=== PATIENT | male | born 1985 | race Caucasian/White ===

== ENCOUNTER 2017-09-22 12:24 | Emergency (ER) | payer OTHER ==
[~2017-09-22] VITALS: Wt 81.6 kg
[~2017-09-22 12:24] MED LIST: CLARITIN10 MG PO; MOTRIN800 MG PO; SEPTRA DS 800 M1 TAB
[2017-09-22] MEDS ORDERED: AMOXICILLIN500 M2 PO (12:35)
[2017-09-22] MEDS ORDERED: NORCO 10-325 T1 EACH PO ×2 (12:35→13:58)
== END 2017-09-22 12:34 | disposition home or self-care (01) ==
LOC: ED 12:24
DX: K02.9 Dental caries, unspecified (principal); K08.89 Other specified disorders of teeth and supporting structures; F10.10 Alcohol abuse, uncomplicated

== ENCOUNTER 2018-07-24 13:05 | Emergency (ER) | payer OTHER ==
[~2018-07-24] VITALS: Ht 182.8 cm; Wt 77.1 kg
[~2018-07-24 13:05] MED LIST changes: +AMOXICILLIN500 M2 PO; +NORCO 10-325 T1 EACH PO
[2018-07-24] MEDS ORDERED: Tobrex Ophth S2.5 ML OPH (13:46)
[2018-07-24] MEDS ORDERED: ACULAR 0.5%3 ML OPH (13:46)
== END 2018-07-24 13:49 | disposition home or self-care (01) ==
LOC: ED 13:05
DX: T15.91XA Foreign body on external eye, part unspecified, right eye, initial encounter (principal); F17.200 Nicotine dependence, unspecified, uncomplicated; X58.XXXA Exposure to other specified factors, initial encounter; Y93.89 Activity, other specified; Y92.89 Other specified places as the place of occurrence of the external cause; Y99.8 Other external cause status

== ENCOUNTER 2019-08-11 18:29 | Emergency (ER) | payer OTHER ==
[~2019-08-11] VITALS: Ht 182.8 cm; Wt 77.1 kg
[~2019-08-11 18:29] MED LIST changes: +ACULAR 0.5%3 ML OPH; +OFLOXACIN OTIC5 ML OT; +Tobrex Ophth S2.5 ML OPH
[2019-08-11] MEDS ORDERED: CYCLOBENZAPRINE10 MG PO (20:35)
[2019-08-11] MEDS ORDERED: IBU800 M1 PO (20:35)
[2019-08-11] MEDS ORDERED: TRAMADOL HCL50 MG PO (20:36)
== END 2019-08-11 21:55 | disposition home or self-care (01) ==
LOC: ED 18:29
DX: S22.32XA Fracture of one rib, left side, initial encounter for closed fracture (principal); S00.12XA Contusion of left eyelid and periocular area, initial encounter; S00.01XA Abrasion of scalp, initial encounter; S20.412A Abrasion of left back wall of thorax, initial encounter; S40.212A Abrasion of left shoulder, initial encounter; F17.200 Nicotine dependence, unspecified, uncomplicated; Z79.2 Long term (current) use of antibiotics; Z79.899 Other long term (current) drug therapy; Y04.2XXA Assault by strike against or bumped into by another person, initial encounter; Y93.89 Activity, other specified; Y92.69 Other specified industrial and construction area as the place of occurrence of the external cause; Y99.8 Other external cause status

== ENCOUNTER 2019-08-20 13:56 | Emergency (ER) | payer OTHER ==
[~2019-08-20 13:56] MED LIST changes: +CYCLOBENZAPRINE10 MG PO; +IBU800 M1 PO; +TRAMADOL HCL50 MG PO
[2019-08-20 14:56] LABS: BILIRUBIN NEGATIVE (NEGATIVE); CLARITY SL CLOUDY (CLEAR); COLOR YELLOW (YELLOW); GLUCOSE NEGATIVE (NEGATIVE); KETONE NEGATIVE (NEGATIVE)
[2019-08-20 14:57] LABS: BLOOD NEGATIVE (NEGATIVE); LEUKO ESTERASE NEGATIVE (NEGATIVE); NITRITE NEGATIVE (NEGATIVE); UROBILINOGEN 0.2 E.U./dl (0.2-1.0)
[2019-08-20 15:03] LABS: BACTERIA TRACE; EPITHELIAL CELLS 0-2; MUCOUS TRACE; WBC 0-2 wbc/hpf (0-5)
[2019-08-20 15:05] LABS: BASO # 0.1 10*3/uL (0.0-0.1); BASO % 0.4 % (0.0-1.0); EOS # 0.4 10*3/uL (0.0-0.4); EOS % 2.1 % (1.0-4.0); HEMATOCRIT 50.2 % (42.0-52.0); HEMOGLOBIN 17.4 g/dl (14.0-18.0); LYMPH % 11.2 % (27.0-41.0); MEAN CELL VOLUME 95.6 fl (80.0-94.0); MEAN CORPUSCULAR HGB 33.1 pg (27.0-31.0); MEAN CORPUSCULAR HGB CONC 34.7 g/dl (33.0-37.0); MEAN PLATELET VOLUME 9.3 fl (9.6-12.3); MONO # 1.1 10*3/uL (0.1-1.0); MONO % 6.2 % (3.0-9.0); NEUT # 14.3 10*3/uL (2.3-7.9); NEUT % 79.7 % (47.0-73.0); PLATELET COUNT AUTOMATED 369 10*3/uL (130-400); RED BLOOD COUNT 5.25 10*6/uL (4.50-5.90); RED CELL DISTRI WIDTH 12.7 % (0-14.5); WHITE BLOOD COUNT 17.9 10*3/uL (4.8-10.8)
[2019-08-20 15:21] LABS: ALBUMIN 3.7 gm/dl (3.1-4.5); ALKALINE PHOSPHATASE 89 U/L (45-117); BUN 11 mg/dl (7-24); CHLORIDE 106 mmol/L (98-107); CREATININE 1.04 mg/dL (0.70-1.30); LIPASE 73 U/L (73-393); POTASSIUM 4.2 mmol/L (3.5-5.1); SGOT/AST 15 IU/L (3-35); SGPT/ALT 31 U/L (12-78); SODIUM 138 mmol/L (136-145)
[2019-08-20] MEDS ORDERED: ROBAXIN-750750 MG PO (19:38)
[2019-08-20] MEDS ORDERED: Motrin,Rufen800 MG PO (19:38)
[2019-08-20] MEDS ORDERED: ZOFRAN4 MG PO (19:38)
== END 2019-08-20 18:33 | disposition home or self-care (01) ==
LOC: ED 13:56
PROVIDERS: Nurse Practitioner Family
DX: R10.33 Periumbilical pain (principal); R10.12 Left upper quadrant pain; F17.200 Nicotine dependence, unspecified, uncomplicated

== ENCOUNTER 2019-08-23 17:03 | Emergency (ER) | payer OTHER ==
[~2019-08-23] VITALS: Ht 185.4 cm; Wt 77.1 kg
[~2019-08-23 17:03] MED LIST changes: +Motrin,Rufen800 MG PO; +ROBAXIN-750750 MG PO; +ZOFRAN4 MG PO
[2019-08-23 17:39] LABS: BACTERIA TRACE; BILIRUBIN 1+ (NEGATIVE); BLOOD TRACE-LYSED (NEGATIVE); CLARITY CLEAR (CLEAR); COLOR YELLOW (YELLOW); EPITHELIAL CELLS 0-2; GLUCOSE NEGATIVE (NEGATIVE); KETONE NEGATIVE (NEGATIVE); LEUKO ESTERASE NEGATIVE (NEGATIVE); MUCOUS 2+; NITRITE NEGATIVE (NEGATIVE); RBC 0-2 rbc/hpf (0-2); SPECIFIC GRAVITY 1.025 (1.005-1.030); UROBILINOGEN 0.2 E.U./dl (0.2-1.0); WBC 0-2 wbc/hpf (0-5)
[2019-08-23 17:39] LABS: BASO # 0.1 10*3/uL (0.0-0.1); BASO % 0.7 % (0.0-1.0); EOS # 0.4 10*3/uL (0.0-0.4); EOS % 2.9 % (1.0-4.0); HEMATOCRIT 50.2 % (42.0-52.0); HEMOGLOBIN 17.6 g/dl (14.0-18.0); LYMPH # 2.1 10*3/uL (1.3-4.4); LYMPH % 15.9 % (27.0-41.0); MEAN CELL VOLUME 94.9 fl (80.0-94.0); MEAN CORPUSCULAR HGB 33.3 pg (27.0-31.0); MEAN CORPUSCULAR HGB CONC 35.1 g/dl (33.0-37.0); MONO # 1.3 10*3/uL (0.1-1.0); MONO % 9.7 % (3.0-9.0); NEUT # 9.1 10*3/uL (2.3-7.9); NEUT % 70.4 % (47.0-73.0); PLATELET COUNT AUTOMATED 381 10*3/uL (130-400); RED BLOOD COUNT 5.29 10*6/uL (4.50-5.90); RED CELL DISTRI WIDTH 12.4 % (0-14.5); WHITE BLOOD COUNT 12.9 10*3/uL (4.8-10.8)
[2019-08-23 17:46] LABS: URINE AMPHETAMINES < 1000 (1000ng/ml); URINE BARBITURATES < 200 (200ng/ml); URINE BENZODIAZEPINES < 200 (200ng/ml); URINE CANNABINOIDS (THC) > 50 (50ng/ml); URINE COCAINE > 300 (300ng/ml); URINE METHADONE < 300 (300ng/ml); URINE OPIATES < 300 (300ng/ml)
[2019-08-23 17:49] LABS: URINE PHENCYCLIDINE < 25 (25ng/ml)
[2019-08-23 18:12] LABS: ALBUMIN 3.7 gm/dl (3.1-4.5); ALKALINE PHOSPHATASE 106 U/L (45-117); BUN 22 mg/dl (7-24); CHLORIDE 103 mmol/L (98-107); CREATININE 1.03 mg/dL (0.70-1.30); LIPASE 89 U/L (73-393); POTASSIUM 3.8 mmol/L (3.5-5.1); SGOT/AST 20 IU/L (3-35); SGPT/ALT 41 U/L (12-78); SODIUM 136 mmol/L (136-145); TOTAL PROTEIN 7.4 gm/dL (6.4-8.2)
== END 2019-08-23 18:19 | disposition home or self-care (01) ==
LOC: ED 17:03
PROVIDERS: Emergency Medicine
DX: R10.9 Unspecified abdominal pain (principal); F14.10 Cocaine abuse, uncomplicated; F17.200 Nicotine dependence, unspecified, uncomplicated; Z79.2 Long term (current) use of antibiotics; Z79.899 Other long term (current) drug therapy

== ENCOUNTER 2019-12-18 12:14 | Emergency (ER) | payer OTHER ==
[~2019-12-18] VITALS: Ht 182.8 cm; Wt 79.4 kg
[2019-12-18 13:30] LABS: BACTERIA 2+; BILIRUBIN NEGATIVE (NEGATIVE); BLOOD NEGATIVE (NEGATIVE); CLARITY SL CLOUDY (CLEAR); COLOR YELLOW (YELLOW); EPITHELIAL CELLS 0-2; GLUCOSE NEGATIVE (NEGATIVE); KETONE NEGATIVE (NEGATIVE); LEUKO ESTERASE NEGATIVE (NEGATIVE); MUCOUS 3+; NITRITE NEGATIVE (NEGATIVE); SPECIFIC GRAVITY 1.025 (1.005-1.030); UROBILINOGEN 0.2 E.U./dl (0.2-1.0); WBC 0-2 wbc/hpf (0-5)
[2019-12-18] MEDS ORDERED: ROBAXIN-750750 MG PO (14:55)
== END 2019-12-18 15:12 | disposition home or self-care (01) ==
LOC: ED 12:14
PROVIDERS: Nurse Practitioner Family
DX: S29.011A Strain of muscle and tendon of front wall of thorax, initial encounter (principal); F17.200 Nicotine dependence, unspecified, uncomplicated; Z79.899 Other long term (current) drug therapy; Z79.2 Long term (current) use of antibiotics; V89.2XXA Person injured in unspecified motor-vehicle accident, traffic, initial encounter; Y93.89 Activity, other specified; Y92.89 Other specified places as the place of occurrence of the external cause; Y99.8 Other external cause status

== ENCOUNTER 2021-03-30 13:06 | Emergency (ER) | payer OTHER | END 2021-03-30 15:18 | disposition home or self-care (01) | LOC: ED 13:06 | DX: S20.211A Contusion of right front wall of thorax, initial encounter (principal); W18.39XA Other fall on same level, initial encounter; Y93.89 Activity, other specified; Y92.89 Other specified places as the place of occurrence of the external cause; Y99.8 Other external cause status ==

== ENCOUNTER → 2021-10-09 | Outpatient (CLI) | payer OTHER ==
[2021-10-09 13:13] LABS: HEMATOCRIT 46.3 % (42.0-52.0); MEAN CELL VOLUME 94.5 fl (80.0-94.0); MEAN CORPUSCULAR HGB 32.9 pg (27.0-31.0); MEAN CORPUSCULAR HGB CONC 34.8 g/dl (33.0-37.0); MEAN PLATELET VOLUME 9.4 fl (9.6-12.3); RED BLOOD COUNT 4.9 10*6/uL (4.50-5.90); WHITE BLOOD COUNT 8.2 10*3/uL (4.8-10.8)
[2021-10-09 13:29] LABS: ALKALINE PHOSPHATASE 78 U/L (45-117); BUN 13 mg/dl (7-24); CHLORIDE 105 mmol/L (98-107); CHOLESTEROL 204 mg/dL (<200); CREATININE 1.19 mg/dL (0.70-1.30); LDL CHOLESTEROL 115 mg/dL (9-159); POTASSIUM 4.2 mmol/L (3.5-5.1); SGOT/AST 16 IU/L (3-35); SGPT/ALT 27 U/L (12-78); SODIUM 135 mmol/L (136-145); TOTAL PROTEIN 7.9 gm/dL (6.4-8.2); TRIGLYCERIDES 63 mg/dl (<150)
== END | disposition home or self-care (01) ==
LOC: LAB 12:55
PROVIDERS: ATTEND Family Medicine
DX: Z00.00 Encounter for general adult medical examination without abnormal findings (principal); L03.90 Cellulitis, unspecified

== ENCOUNTER → 2021-10-15 | Outpatient (CLI) | payer OTHER ==
[2021-10-15 11:54] LABS: ALKALINE PHOSPHATASE 84 U/L (45-117); BUN 12 mg/dl (7-24); CHLORIDE 105 mmol/L (98-107); CREATININE 1.09 mg/dL (0.70-1.30); POTASSIUM 5.2 mmol/L (3.5-5.1); SGOT/AST 22 IU/L (3-35); SGPT/ALT 26 U/L (12-78); SODIUM 140 mmol/L (136-145); TOTAL PROTEIN 7.3 gm/dL (6.4-8.2)
== END | disposition home or self-care (01) ==
LOC: LAB 10:54
PROVIDERS: ATTEND Family Medicine
DX: E74.9 Disorder of carbohydrate metabolism, unspecified (principal)

== ENCOUNTER 2024-11-24 14:41 | Emergency (ER) | payer OTHER ==
[~2024-11-24] VITALS: Ht 182.8 cm; Wt 83.9 kg
[2024-11-24] MEDS ORDERED: HYDROmorphONE Hydrochloride 0.5 MG/0.5 ML SYRINGE IV ONE ×2 (15:05→20:50)
[2024-11-24] MEDS ORDERED: Ondansetron Hydrochloride 4 MG/2 ML VIAL IV ONE (15:05)
[2024-11-24] MEDS ORDERED: SODIUM CHLORIDE 0.9% 1,000 ML IV ONE (15:05)
[2024-11-24] MEDS ORDERED: IOHEXOL 300 MG/ML 100 ML VIAL IV ONE (15:10)
[2024-11-24 15:21] LABS: HEMATOCRIT 34.6 % (42.0-52.0); MEAN CELL VOLUME 109.5 fl (80.0-94.0); MEAN CORPUSCULAR HGB 37.7 pg (27.0-31.0); MEAN CORPUSCULAR HGB CONC 34.4 g/dl (33.0-37.0); MEAN PLATELET VOLUME 9.5 fl (9.6-12.3); PLATELET COUNT AUTOMATED 250 10*3/uL (130-400); RED BLOOD COUNT 3.16 10*6/uL (4.50-5.90); RED CELL DISTRI WIDTH 12.8 % (0-14.5); WHITE BLOOD COUNT 10.9 10*3/uL (4.8-10.8)
[2024-11-24 15:22] LABS: MANUAL DIFF REFLEX YES
[2024-11-24 15:32] LABS: ACT PARTIAL THROMBO TIME 31.8 SECONDS (20.0-32.1)
[2024-11-24 15:46] LABS: ALKALINE PHOSPHATASE 172 U/L (46-116); BUN 6 mg/dl (9-23); CHLORIDE 97 mmol/L (98-107); LIPASE 33 U/L (12-53); POTASSIUM 3.1 mmol/L (3.4-5.1); SGPT/ALT 38 U/L (5-49); TOTAL PROTEIN 6.4 gm/dL (6.0-8.0)
[2024-11-24 16:07] LABS: BASOPHILS 1 % (0-1); POLYCHROMASIA SLIGHT
[2024-11-24 16:08] LABS: TOTAL CELLS COUNTED 100 #CELLS
[2024-11-24 16:10] LABS: PLATELET SUFFICIENCY NORMAL (NORMAL)
[2024-11-24] MEDS ORDERED: POTASSIUM CHLORIDE 20 MEQ TAB PO ONE (16:15)
[2024-11-24 16:19] LABS: BILIRUBIN Negative (Negative); BLOOD Negative (Negative); CLARITY Clear (Clear); COLOR Dark Yellow (Yellow); GLUCOSE Negative (Negative); KETONE Trace (Negative); LEUKO ESTERASE Trace (Negative); NITRITE Negative (Negative); PH 6.5 (4.5-8.0); SPECIFIC GRAVITY >= 1.030 (1.001-1.030)
[2024-11-24 16:52] LABS: BACTERIA 1+; MUCOUS 1+
[2024-11-24] MEDS ORDERED: cefTRIAXone Sodium 1 GM/10 ML SYR IV ONE (18:40)
== END 2024-11-24 23:05 | disposition short-term general hospital (02) ==
LOC: ED 14:41
PROVIDERS: Nurse Practitioner Family
DX: K72.90 Hepatic failure, unspecified without coma (principal); R18.8 Other ascites; E87.6 Hypokalemia; E87.1 Hypo-osmolality and hyponatremia